=== PATIENT | male | born 1960 | race Caucasian/White ===

== ENCOUNTER 2021-12-19 05:13 | Emergency (ER) | payer OTHER, SELFPAY ==
[2021-12-19 05:16] VITALS: BP 180/87; PULSE 95; RESP 18; TEMP 37.3; O2SAT 96; BMI 29.7
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
[2021-12-19 05:59] LABS: Glucose Point of Care 225 mg/dL (70-110)
[2021-12-19 08:34] VITALS: BP 171/77; PULSE 88; RESP 16; O2SAT 92
== END 2021-12-19 08:36 | disposition home or self-care (01) ==
PROVIDERS: Emergency Provider Emergency Medicine
DX: S01.81XA Laceration without foreign body of other part of head, initial encounter (principal); V69.9XXA Occupant (driver) (passenger) of heavy transport vehicle injured in unspecified traffic accident, initial encounter
CPT/HCPCS: 12011; 36416; 70450; 71045; 72125; 82962; 99283